=== PATIENT | male | born 1970 | race Caucasian/White ===

== ENCOUNTER 2018-01-17 18:20 | Emergency (ER) | payer SELFPAY ==
--- NOTE | 2018-01-17 18:56 | ED Physician Documentation ---
Chest Pain - HISTORIAN Historian: patient - HPI Stated Complaint: chest pain Chief Complaint: Chest Pain Onset: days ago (2) Timing: sudden onset Duration: constant Last known Well Date: 01/14/18 Last Known Well Time: 08:00 Last known Well Code/Unknown Code: Unknown Severity: mild Quality: other ("pouding" ) Chest Pain Radiation: no radiation Chest Pain Signs/Symptoms: denies: nausea, vomiting, diaphoresis, dizziness, dyspnea, tachypnea, tachycardia, palpitations, weakness Worsened By: movement Relieved By: nothing Further Comments: yes (He was evaluated in ER yesterday at the [facility] . He states the pain is all the time and feels like a pouding. No OTC meds have been tried. He did take Lisinopril and he stopped a long time ago. "I dont think it was helping anyway" . He denies any injury no past history of cardiac conditions.He reports the stamping ground thought he had a blood clot but couldnt find one) - ROS CONST: none MS/LYMPH: none GI/: none EYES/ENT: none SKIN/ENDO: none NEURO/PSYCH: none - PAST HX OR risk factors: hypertension DVT/PE Risk Factors: none TAD/AAA risk factors: none Neuro deficit: none GI disease: none Lung disease: none Surgeries/Procedures: none Immunizations: referred to PCP - SOCIAL HX Smoking History: non-smoker Alcohol Use: none Drug Use: none - FAMILY HX Family HX: none - VITAL SIGNS Vital Signs: Vital Signs Temp Pulse Resp BP Pulse Ox 165/111 01/10/14 02:55 - REVIEWED ASSESSMENTS Nursing Assessment Reviewed: Yes Vitals Reviewed: Yes <Kira Dillon - Last Filed: 01/17/18 18:52> - VITAL SIGNS Vital Signs: Vital Signs Temp Pulse Resp BP Pulse Ox 104 H 22 182/126 94 01/17/18 19:02 01/17/18 18:20 01/17/18 18:20 01/17/18 19:02 <Juan Nuñez - Last Filed: 01/17/18 21:54> - PAST HX Allergies/Adverse Reactions: Allergies Allergy/AdvReac Type Severity Reaction Status Date / Time No Known Allergies Allergy Verified 01/17/18 19:12 Home Medications: Ambulatory Orders Medication Instructions Recorded Lisinopril 01/17/18 Progress - Progress Progress: CXR: No infiltrate, effusion or pneumothorax is present. Heart size, mediastinum and pulmonary vascularity are normal. IMPRESSION: No active pulmonary disease. GI cocktail no change Toradol 30 mg IV (for chest pain with palpation, musculoskeletal) improved lasix 20 mg IV for mild leg swelling (BNP result was normal) f/u pcp <Juan Nuñez - Last Filed: 01/17/18 21:54> ED Results Lab/Radiology - Lab Results Lab Results: Lab Results 01/17/18 01/17/18 01/17/18 19:10 19:10 19:10 WBC 8.90 K/ul K/ul (4.00-12.00) RBC 4.76 M/ul M/ul (3.90-5.20) Hgb 12.7 g/dL g/dL (12.0-18.0) Hct 38.1 % % (37.0-53.0) MCV 80.1 fl fl (80.0-100.0) MCH 26.7 pg L pg (28.0-34.0) MCHC 33.4 g/dL g/dL (30.0-36.0) RDW 13.5 % % (11.3-14.3) Plt Count 299 K/mm3 K/mm3 (130-400) Neut % (Auto) 71.2 % % (39.0-79.0) Lymph % (Auto) 20.5 % % (16.0-50.0) [place] % (Auto) 4.5 % % (0.0-11.0) Eos % (Auto) 1.6 % % (0.0-6.8) Baso % (Auto) 0.5 (0.0-1.5) Neut # (Auto) 6.3 # k/uL # k/uL (1.4-7.7) Lymph # (Auto) 1.8 # k/uL # k/uL (0.6-4.0) [place] # (Auto) 0.4 # k/uL # k/uL (0.0-0.9) Eos # (Auto) 0.2 # k/uL # k/uL (0.0-0.6) Baso # (Auto) 0.0 # k/uL # k/uL (0.0-0.5) Reactive Lymphs % 1.7 % % (0.0-5.0) Reactive Lymphs # 0.2 # k/uL # k/uL (0.0-0.8) D-Dimer 594 ng/mL ng/mL (6.0-682) Sodium 141 mmol/L mmol/L (136-145) Potassium 4.0 mmol/L mmol/L (3.5-5.1) Chloride 101 mmol/L mmol/L (98-107) Carbon Dioxide 28 mmol/L mmol/L (22-30) BUN 14 mg/dL mg/dL (9-20) Creatinine 1.20 mg/dL mg/dL (0.66-1.25) Estimated Creat Clear 164 Est GFR ( Amer) > 60 (60 - ) Est GFR (Non-Af Amer) > 60 (60 - ) Glucose 131 mg/dL H mg/dL (74-106) Calcium 9.1 mg/dL mg/dL (8.4-10.2) Total Bilirubin 0.2 mg/dL mg/dL (0.2-1.3) AST 19 U/L U/L (15-46) ALT 30 U/L U/L (13-69) Alkaline Phosphatase 92 U/L U/L (38-126) Creatine Kinase 112 U/L U/L (55-170) Troponin I < 0.03 ng/mL L ng/mL (0.03-0.06) Total Protein 7.7 g/dL g/dL (6.3-8.2) Albumin 4.0 g/dL g/dL (3.5-5.0) - Orders Orders: ED Orders Category Date Time Status Continuous EKG monitoring Q30M Care 01/17/18 19:02 Active Continuous Pulse Oximetry Q30M Care 01/17/18 19:[address] IV Lock 1T Care 01/17/18 19:02 Active CHEST 1VIEW [RAD] Stat Exams 01/17/18 Completed BNP [NT-proBNP] Stat Lab 01/17/18 Ordered CBC/PLATELET/DIFF Routine Lab 01/17/18 19:10 Completed CMP Routine Lab 01/17/18 19:10 Completed CREATINE KINASE Routine Lab 01/17/18 19:10 Completed D DIMER Stat Lab 01/17/18 19:10 Completed TROPONIN I (cTnI) Stat Lab 01/17/18 19:10 Completed UA W/MICRO IF INDICATED Routine Lab 01/17/18 19:03 Ordered Aspirin Med 01/17/18 19:02 Discontinued 324 mg PO NOW ONE Ketorolac Tromethamine [Toradol] Med 01/17/18 19:50 Discontinued 30 mg IVP NOW ONE Lidocaine 2%Visc 15ml [Xylocaine] Med 01/17/18 19:20 Discontinued 300 mg .ROUTE .STK-MED ONE Mag Hydrox/Aluminum Hyd/Simeth [Mylanta] Med 01/17/18 19:20 Discontinued 30 ml PO .STK-MED ONE Mag Hydrox/Aluminum Hyd/Simeth [Mylanta] 30 ml Med 01/17/18 19:19 Ordered Lidocaine 2%Visc 15ml [Xylocaine] 20 mg PHENobarb/HYOSCY/ATROPINE/SCOP [] 10 ml PO NOW Oxygen Daily Oxygen 01/17/18 19:15 Ordered EKG WITH COMPARISON Stat Ther 01/17/18 19:02 Ordered <Juan Nuñez - Last Filed: 01/17/18 21:54> Chest Pain Physical Exam - EXAM General Appearance: no acute distress, alert EENT: eye inspection normal, ENT inspection normal Neck: nml inspection. No: JVD present Respiratory: no resp. distress, nml breath sounds, other (he does report pain with palpation at left lateral and mid chest ) CVS: reg. rate & rhythm, no murmur, pulses equal Abdomen: soft, normal bowel sounds, non-tender, other (right lateral side of umblicus is a buldging area he states has "been there for years" ) Skin: warm/dry, normal color Extremities: non-tender, normal range of motion, no evidence of injury, no edema Neuro: oriented X3, CN's nml as tested, motor nml, sensation nml, mood/affect nml, cognition normal <Kira Dillon - Last Filed: 01/17/18 18:52> Discharge <Kira Dillon - Last Filed: 01/17/18 18:52> Decision to Admit: NO Decision Time: 21:54 <Juan Nuñez - Last Filed: 01/17/18 21:54> Clincal Impression: chest pain, probable musculoskeletal pain Referrals: Primary Doctor,No [Primary Care Provider] - Condition: Stable Disposition: HOME, SELF-CARE
[2018-01-17] MEDS ORDERED: ASPIRIN 81 MG CHEW TAB PO ONE (19:02)
[2018-01-17 19:15] LABS: BASOPHILS % 0.5 (0.0-1.5); EOSINOPHILS % 1.6 % (0.0-6.8); MEAN CORPUSCULAR HEMOGLOBIN 26.7 pg (28.0-34.0); MEAN CORPUSCULAR VOLUME 80.1 fl (80.0-100.0); MONOCYTES % 4.5 % (0.0-11.0); NEUTROPHILS # 6.3 # k/uL (1.4-7.7)
[2018-01-17] MEDS ORDERED: MAG HYDROX/ALUMINUM HYD/SIMETH 30 ML, Lidocaine 2%Visc 15ml 20 MG, PHENobarb/HYOSCY/ATR... PO ONE ×3 (19:19)
[2018-01-17] MEDS ORDERED: Lidocaine 2%Visc 15ml 20 MG/ML UDC ONE (19:20)
[2018-01-17] MEDS ORDERED: MAG HYDROX/ALUMINUM HYD/SIMETH 30 ML UDC PO ONE (19:20)
[2018-01-17 19:31] LABS: eGFR (African) > 60; eGFR (Non-African) > 60
--- NOTE | 2018-01-17 19:40 | Diagnostic Imaging Report ---
AVEL RILEY [facility] [address] [facility] [address] [place], [place]. [address] Report Submission Date: Jan 17, 2018 7:28:46 PM CDT Patient Study Name: PHI MOLINA Date: Jan 17, 2018 7:03:45 PM CDT Modality Type: DX Gender: M Description: CHEST : 74 Institution: [facility] Physician: AVEL RILEY Chest, AP portable HISTORY Weakness, chest pain. FINDINGS No infiltrate, effusion or pneumothorax is present. Heart size, mediastinum and pulmonary vascularity are normal. IMPRESSION No active pulmonary disease. Electronically signed on Jan 17, 2018 7:28:46 PM CDT by: Juvenal BALL
[2018-01-17] MEDS ORDERED: KETOROLAC TROMETHAMINE 30 MG/1ML VIAL IVP ONE (19:50)
[2018-01-17] MEDS ORDERED: FUROSEMIDE 20 MG/2 ML VIAL IVP ONE (21:05)
[2018-01-17 22:08] VITALS: BP 156/72
== END 2018-01-17 22:00 | disposition home or self-care (01) ==
LOC: ED 18:20
DX: R07.9 Chest pain, unspecified (principal)
CPT/HCPCS: 71045; 80053; 82550; 83880; 84484; 85025; 85379; 93005; A9270; J1885; J1940; 96374; 96375; 99284; S1016

== ENCOUNTER 2018-01-20 19:34 | Emergency (ER) | payer SELFPAY ==
--- NOTE | 2018-01-20 19:54 | ED Physician Documentation ---
Abdominal Pain - HISTORIAN Historian: patient - HPI Stated Complaint: abdominal pain and dark red areas in stool Chief Complaint: Flank Pain Onset: other ("just today" ) Duration: other ("just hurts" ) Timing: still present Context: denies: out of country travel, bad food, recent trauma Severity: mild Quality: other ("just pain" ) Associated Symptoms: bloody stools (dark red in the stool x 2 regular stools today .. last one around 3 pm ) Exacerbated by: nothing Relieved by: nothing Further Comments: yes (He states that he had two normal bowel movements today and he states at 3 pm stool which was normal he did see dark red that was mixed in the stool and he has stomach pain "all over" when questioned on type and location he just says "all over just hurts" . He does have high blood pressure - he did take meds before he was arrested but did not take his meds. He did tell the nurse in discussion but not myself he feared he had a seizure today and this was not witnessed.) - ROS CONST: no problems GI/: bloody stools CVS/RESP: denies: palpitations, shortness of breath, cough MS/SKIN/LYMPH: denies: joint pain, leg swelling, rash NEURO/PSYCH: denies: headache, dizziness - SOCIAL HX Smoking History: cigarettes Alcohol Use: none Drug Use: none - FAMILY HX Family History: none - PAST HX Past History: none Ischemic Bowel Risk Factors: none Surgeries/Procedures: none Immunizations: UTD Home Medications: Ambulatory Orders Medication Instructions Recorded Lisinopril 01/17/18 Allergies/Adverse Reactions: Allergies Allergy/AdvReac Type Severity Reaction Status Date / Time No Known Allergies Allergy Verified 01/17/18 19:12 - VITAL SIGNS Vital Signs: Vital Signs Temp Pulse Resp BP Pulse Ox 98.2 F 90 18 167/97 98 01/20/18 19:45 01/21/18 00:04 01/21/18 00:04 01/21/18 00:04 01/21/18 00:04 Progress - Progress Progress: 2039: complaint of increased "cramping" he was moving around in bed and tearful. After approx 1-2 min he was feeling better. DG 2122: talking and laughing with guard. Awaiting lab and xray DG 220: resting in bed quietly. DG 2229: down for CT scan DG 2336: Results discussed and follow up needed DG ED Results Lab/Radiology - Lab Results Lab Results: Lab Results 01/21/18 01/20/18 01/20/18 20:45 20:03 20:03 WBC RBC Hgb Hct MCV MCH MCHC RDW Plt Count Neut % (Auto) Lymph % (Auto) [place] % (Auto) Eos % (Auto) Baso % (Auto) Neut # (Auto) Lymph # (Auto) [place] # (Auto) Eos # (Auto) Baso # (Auto) Reactive Lymphs % Reactive Lymphs # Sodium 140 mmol/L mmol/L (136-145) Potassium 4.1 mmol/L mmol/L (3.5-5.1) Chloride 104 mmol/L mmol/L (98-107) Carbon Dioxide 28 mmol/L mmol/L (22-30) BUN 10 mg/dL mg/dL (9-20) Creatinine 1.10 mg/dL mg/dL (0.66-1.25) Estimated Creat Clear 163 Est GFR ( Amer) > 60 (60 - ) Est GFR (Non-Af Amer) > 60 (60 - ) Glucose 161 mg/dL H mg/dL (74-106) Calcium 8.4 mg/dL mg/dL (8.4-10.2) Total Bilirubin 0.1 mg/dL L mg/dL (0.2-1.3) AST 22 U/L U/L (15-46) ALT 33 U/L U/L (13-69) Alkaline Phosphatase 75 U/L U/L (38-126) Total Protein 7.0 g/dL g/dL (6.3-8.2) Albumin 3.7 g/dL g/dL (3.5-5.0) Lipase 132 U/L U/L (23-300) Urine Color Yellow (YELLOW) Urine Appearance Clear (CLEAR) Urine pH 7.0 (5.0 - 8.0) Ur Specific [place] 1.015 (1.010-1.030) Urine Protein Negative mg/dL mg/dL (NEGATIVE) Urine Ketones Negative mg/dL mg/dL (NEGATIVE) Urine Occult Blood Negative (NEGATIVE) Urine Nitrite Negative (NEGATIVE) Urine Bilirubin Negative (NEGATIVE) Urine Urobilinogen 0.2 Eu Eu (0.2-1.0) Ur Leukocyte Esterase Negative (NEGATIVE) Urine Glucose Negative mg/dL mg/dL (NEGATIVE) 01/20/18 20:03 WBC 7.30 K/ul K/ul (4.00-12.00) RBC 4.80 M/ul M/ul (3.90-5.20) Hgb 12.7 g/dL g/dL (12.0-18.0) Hct 38.3 % % (37.0-53.0) MCV 79.8 fl L fl (80.0-100.0) MCH 26.5 pg L pg (28.0-34.0) MCHC 33.2 g/dL g/dL (30.0-36.0) RDW 13.5 % % (11.3-14.3) Plt Count 274 K/mm3 K/mm3 (130-400) Neut % (Auto) 65.0 % % (39.0-79.0) Lymph % (Auto) 24.2 % % (16.0-50.0) [place] % (Auto) 4.0 % % (0.0-11.0) Eos % (Auto) 4.7 % % (0.0-6.8) Baso % (Auto) 0.5 (0.0-1.5) Neut # (Auto) 4.7 # k/uL # k/uL (1.4-7.7) Lymph # (Auto) 1.8 # k/uL # k/uL (0.6-4.0) [place] # (Auto) 0.3 # k/uL # k/uL (0.0-0.9) Eos # (Auto) 0.3 # k/uL # k/uL (0.0-0.6) Baso # (Auto) 0.0 # k/uL # k/uL (0.0-0.5) Reactive Lymphs % 1.6 % % (0.0-5.0) Reactive Lymphs # 0.1 # k/uL # k/uL (0.0-0.8) Sodium Potassium Chloride Carbon Dioxide BUN Creatinine Estimated Creat Clear Est GFR ( Amer) Est GFR (Non-Af Amer) Glucose Calcium Total Bilirubin AST ALT Alkaline Phosphatase Total Protein Albumin Lipase Urine Color Urine Appearance Urine pH Ur Specific [place] Urine Protein Urine Ketones Urine Occult Blood Urine Nitrite Urine Bilirubin Urine Urobilinogen Ur Leukocyte Esterase Urine Glucose - Radiology Radiology Impressions: CT abdomen and pelvis with contrast Clinical history: Abdominal pain, vomiting and bloating for 3 days. Contrast administered: 87 mL of Omnipaque 300. Technique: CT of the abdomen and pelvis is performed with intravenous infusion of contrast. Coronal reconstructions were performed by the technologist. Findings: Visualized lung bases are clear. Liver and spleen demonstrate normal attenuation without focal defect. The gallbladder is contracted. There is no pancreatic or adrenal abnormality. The kidneys demonstrate symmetric enhancement. There is no retroperitoneal mass or significant adenopathy. Vascular calcification is present in the abdominal aorta. The appendix is visualized and is within normal limits. Multiple diverticula are seen in the sigmoid colon without evidence of diverticulitis. There is mesh adjacent to the anterior abdominal wall consistent previous umbilical hernia repair. Bladder is unremarkable. There is no free fluid in the pelvis or abdomen. Small inguinal hernia seen on the right contains only fat. Impression: 1. Postoperative changes. 2. Diverticulosis. 3. Negative appendix. 4. Contracted gallbladder. 5. Vascular calcification. Electronically signed on Jan 20, 2018 11:23:18 PM CDT by: Bill Schuster - Orders Orders: ED Orders Category Date Time Status IV Started NOW Care 01/20/18 19:[address] ABD & PELVIS W/ CON Stat Exams 01/20/18 Completed CBC/PLATELET/DIFF Routine Lab 01/20/18 20:03 Completed CMP Routine Lab 01/20/18 20:03 Completed LIPASE Stat Lab 01/20/18 20:03 Completed UA MACRO DIP ONLY Routine Lab 01/21/18 20:45 Completed URINALYSIS Routine Lab 01/20/18 Ordered 0.9 % Sodium Chloride [Normal Saline] 1,000 ml Med 01/20/18 20:12 Discontinued IV .STK-MED 0.9 % Sodium Chloride [Normal Saline] 1,000 ml Med 01/20/18 21:43 Discontinued IV .STK-MED 0.9 % Sodium Chloride [Normal Saline] 1,000 ml Med 01/20/18 20:00 Discontinued IV Q10H 0.9 % Sodium Chloride [Normal Saline] 1,000 ml Med 01/20/18 22:26 Discontinued IV Q1H CloNIDine HCL [Catapress] Med 01/20/18 23:34 Discontinued 0.1 mg PO NOW ONE Ketorolac Tromethamine [Toradol] Med 01/20/18 23:33 Discontinued 30 mg IVP NOW ONE Abdominal Pain Physical Exam - Physical Exam General Appearance: no acute distress, alert EENT: eye inspection normal NECK: normal inspection RESPIRATORY: no resp distress, chest non-tender, breath sounds normal CVS: reg rate & rhythm, heart sounds normal ABDOMEN: soft, normal bowel sounds, no distension, non-tender BACK: normal inspection, no CVA tenderness SKIN: warm/dry, normal color EXTREMITIES: non-tender, normal range of motion, no evidence of injury, no edema NEURO: oriented X3 Vital Signs: Vital Signs Temp Pulse Resp BP Pulse Ox 98.2 F 90 18 167/97 98 01/20/18 19:45 01/21/18 00:04 01/21/18 00:04 01/21/18 00:04 01/21/18 00:04 Discharge Clincal Impression: Contraction, gallbladder Referrals: Primary Doctor,No [Primary Care Provider] - 2 Days Additional Instructions: 1. Clonidine 0.1 mg take 1 by mouth daily 2. Maury diet - no fried foods 3. Follow up out pt for high blood pressure and gallbladder follow up 4. Increase fluids 5. Return to ER for any concerns Condition: Stable Disposition: 01 HOME, SELF-CARE Decision to Admit: NO Date of Decison to Admit: 01/20/18 Decision Time: 23:42
[2018-01-20 20:07] LABS: BASOPHILS % 0.5 (0.0-1.5); EOSINOPHILS % 4.7 % (0.0-6.8); MEAN CORPUSCULAR HEMOGLOBIN 26.5 pg (28.0-34.0); MEAN CORPUSCULAR VOLUME 79.8 fl (80.0-100.0); NEUTROPHILS # 4.7 # k/uL (1.4-7.7)
[2018-01-20] MEDS: 0.9 % SODIUM CHLORIDE 1,000 ML IV SCH (20:12)
[2018-01-20] MEDS ORDERED: 0.9 % SODIUM CHLORIDE 1,000 ML IV ONE ×2 (20:12→21:43)
[2018-01-20] MEDS: 0.9 % SODIUM CHLORIDE 1,000 ML IV ONE (21:20)
[2018-01-20 22:20] LABS: eGFR (Non-African) > 60
[2018-01-20] MEDS: CloNIDine HCL 0.1 MG TABLET PO ONE (23:50)
[2018-01-20] MEDS: KETOROLAC TROMETHAMINE 30 MG/1ML VIAL IVP ONE (23:52)
[2018-01-21 00:08] VITALS: BP 167/97
[2018-01-21 08:16] LABS: APPEARANCE,URINE CLEAR (CLEAR); COLOR,URINE YELLOW (YELLOW); OCCULT BLOOD,URINE NEGATIVE (NEGATIVE); UROBILINOGEN URINE 0.2 Eu (0.2-1.0)
--- NOTE | 2018-01-21 18:36 | Diagnostic Imaging Report ---
[facility] [address] [facility].[address] [address] Report Submission Date: Jan 20, 2018 11:23:18 PM CDT Patient Study Name: PHI MOLINA Date: Jan 20, 2018 10:47:30 PM CDT Modality Type: CT\SR Gender: M Description: CT ABD PELVIS W/ CON : 74 Institution: [facility] Physician: AVEL RILEY - TIESHA CT abdomen and pelvis with contrast Clinical history: Abdominal pain, vomiting and bloating for 3 days. Contrast administered: 87 mL of Omnipaque 300. Technique: CT of the abdomen and pelvis is performed with intravenous infusion of contrast. Coronal reconstructions were performed by the technologist. Findings: Visualized lung bases are clear. Liver and spleen demonstrate normal attenuation without focal defect. The gallbladder is contracted. There is no pancreatic or adrenal abnormality. The kidneys demonstrate symmetric enhancement. There is no retroperitoneal mass or significant adenopathy. Vascular calcification is present in the abdominal aorta. The appendix is visualized and is within normal limits. Multiple diverticula are seen in the sigmoid colon without evidence of diverticulitis. There is mesh adjacent to the anterior abdominal wall consistent previous umbilical hernia repair. Bladder is unremarkable. There is no free fluid in the pelvis or abdomen. Small inguinal hernia seen on the right contains only fat. Impression: 1. Postoperative changes. 2. Diverticulosis. 3. Negative appendix. 4. Contracted gallbladder. 5. Vascular calcification. Electronically signed on Jan 20, 2018 11:23:18 PM CDT by: Bill BALL
== END 2018-01-21 00:13 | disposition home or self-care (01) ==
LOC: ED 19:34
DX: K82.0 Obstruction of gallbladder (principal)
CPT/HCPCS: 74177; 80053; 81002; 83690; 85025; J1885; J7030; 96365; 96366; 96375; 99285; Q9967; S1016